=== PATIENT | male | born 1975 | race Caucasian/White ===

== ENCOUNTER → 2023-06-20 15:14 | Outpatient (REF) | payer BC, SELFPAY | LOC: DHCBS MAIN 15:14 | PROVIDERS: ATTENDING PHYSICIAN Physician Assistant; FAMILY PHYSICIAN Family Medicine | DX: I50.20 Unspecified systolic (congestive) heart failure (principal); I42.9 Cardiomyopathy, unspecified; I25.10 Atherosclerotic heart disease of native coronary artery without angina pectoris | CPT/HCPCS: 93306 ==